=== PATIENT | male | born 2000 | race Two or more races ===

== ENCOUNTER 2025-01-01 09:02 | Emergency (ER) | payer SELFPAY ==
[2025-01-01 09:06] VITALS: BP 158/100; PULSE 80; RESP 16; TEMP 36.8; O2SAT 98; BMI 30.7
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
[2025-01-01 09:41] VITALS: BP 136/95; PULSE 83; O2SAT 97
[2025-01-01 10:42] VITALS: BP 140/70; PULSE 80; RESP 20; TEMP 36.8; O2SAT 98
== END 2025-01-01 10:00 ==
PROVIDERS: Emergency Provider Emergency Medicine
DX: Z00.8 Encounter for other general examination (principal); S60.419A Abrasion of unspecified finger, initial encounter; V89.2XXA Person injured in unspecified motor-vehicle accident, traffic, initial encounter
CPT/HCPCS: 99282